=== PATIENT | female | born 1960 | race Caucasian/White ===

== ENCOUNTER 2022-06-26 08:35 | Outpatient (CLI) | payer OTHER, SELFPAY ==
[2022-06-26 13:45] LABS: Albumin* 4.2 g/dL (3.3-5.0); Chloride* 106 mmol/L (96-114); Sodium* 139 mmol/L (135-149)
[2022-06-26 13:46] LABS: Potassium* 4.5 mmol/L (3.6-5.1)
[2022-06-26 13:47] LABS: Cholesterol* 238 mg/dL (90-199)
[2022-06-26 13:48] LABS: Alanine Aminotransferase* 19 U/L (4-35); Alkaline Phosphatase* 95 U/L (40-150); Aspartate Amino Transferase* 27 U/L (12-35); Bilirubin Total* 0.4 mg/dL (0.1-1.5); Blood Urea Nitrogen* 18 mg/dL (7-30); Carbon Dioxide* 27 mmol/L (20-32); Creatinine* 0.7 mg/dL (0.5-1.5); Estimated Glomerular Filt Rate 97 ml/min; Glucose* 96 mg/dL (60-115); Total Protein* 6.8 g/dL (6.0-8.3); Triglycerides* 72 mg/dL (40-149)
[2022-06-26 13:49] LABS: Calcium* 9.3 mg/dL (8.4-10.6); HDL Cholesterol* 55 mg/dL (>=50); LDL Cholesterol Calculated 169 mg/dL (<100)
== END 2022-06-26 08:36 | disposition home or self-care (01) ==
PROVIDERS: PCP Family Medicine; Visit Provider Nurse Practitioner Family
DX: Z00.00 Encounter for general adult medical examination without abnormal findings (principal); B35.1 Tinea unguium; L25.9 Unspecified contact dermatitis, unspecified cause; Z13.6 Encounter for screening for cardiovascular disorders
CPT/HCPCS: 80053; 80061

== ENCOUNTER 2022-07-23 10:54 | Outpatient (RCR) | payer OTHER, SELFPAY ==
[2022-07-23 11:12] LABS: D Dimer Quantitative* < 0.27 ug/ml (0.00-0.50)
[2022-07-26 01:03] LABS: Cardiolipin Antibody IgA < 10 APL (<=11); Cardiolipin Antibody IgG < 10 GPL (<=14); Cardiolipin Antibody IgM < 10 MPL (<=12)
[2022-07-26 01:21] LABS: B2Glycoprotein 1, IgG Antibody < 10 SGU (<=20); B2Glycoprotein 1, IgM Antibody < 10 SMU (<=20)
[2022-07-26 18:26] LABS: Protein C Functional 141 % (83-168); Protein S Functional 89 % (57-131)
[2022-07-27 12:05] LABS: Antithrombin, Enzymatic 108 % (76-128)
[2022-07-28 10:41] LABS: FACV Specimen Whole Blood; Factor V Leiden (F5) Mutation Negative
[2022-07-28 20:04] LABS: PT PCR Specimen Whole Blood; Prothrombin(F2)G20210A Variant Negative
[2022-08-01 22:59] LABS: Prothrombin Time 14.1 sec (12.0-15.5); dRVVT Screen 36 sec (33-44)
== END 2023-01-19 23:59 | disposition home or self-care (01) ==
LOC: CCIC 10:54
PROVIDERS: PCP Family Medicine; Visit Provider Internal Medicine Hematology & Oncology
DX: I26.99 Other pulmonary embolism without acute cor pulmonale (principal); Z86.718 Personal history of other venous thrombosis and embolism; Z79.01 Long term (current) use of anticoagulants
CPT/HCPCS: 36415; 81240; 81241; 85300; 85303; 85306; 85379; 85610; 85613; 85730; 86146; 86147; 99202; 99205

== ENCOUNTER 2022-08-18 12:13 | Outpatient (CLI) | payer OTHER, SELFPAY ==
--- NOTE | 2022-08-18 13:40 | CRLHL7_ITS ---
For Patients: As a result of the Century Cures Act, medical imaging exams and procedure reports are released immediately into your electronic medical record. You may view this report before your referring provider. If you have questions, please contact your health care provider. BILATERAL SCREENING MAMMOGRAM WITH COMPUTER-AIDED DETECTION AND TOMOSYNTHESIS TECHNIQUE: CC and MLO views were obtained. These mammographic images have been obtained using full-field digital technique. These mammographic images were interpreted with the benefit of computer-aided detection. Breast Tomosynthesis was used in this interpretation. COMPARISON FILM: 09/25/21, 09/10/20, 09/09/19. FINDINGS: There are scattered areas of fibroglandular density IMPRESSION: There is no radiographic evidence for malignancy. ASSESSMENT: BI-RADS Category 1: Negative RECOMMENDATION: Routine screening mammogram in 1 year. A lay language report of this examination will be provided to the patient. Yolanda Barth M.D. Diagnostic/Breast Radiologist [email or web address] STEPHANY/Dictated by: Yolanda Barth MD @ 08/19/2022 8:35:00 AM (Electronically Signed)
== END 2022-08-18 12:14 | disposition home or self-care (01) ==
PROVIDERS: PCP Family Medicine; Visit Provider Nurse Practitioner Family
DX: Z12.31 Encounter for screening mammogram for malignant neoplasm of breast (principal)
CPT/HCPCS: 77063; 77067

== ENCOUNTER 2023-10-06 12:50 | Outpatient (CLI) | payer OTHER, SELFPAY ==
--- NOTE | 2023-10-06 13:20 | CRLHL7_ITS ---
For Patients: As a result of the Century Cures Act, medical imaging exams and procedure reports are released immediately into your electronic medical record. You may view this report before your referring provider. If you have questions, please contact your health care provider. BILATERAL SCREENING MAMMOGRAM WITH COMPUTER-AIDED DETECTION AND TOMOSYNTHESIS TECHNIQUE: CC and MLO views were obtained. These mammographic images have been obtained using full-field digital technique. These mammographic images were interpreted with the benefit of computer-aided detection. Breast Tomosynthesis was used in this interpretation. COMPARISON FILM: 08/18/22, 09/25/21, 09/10/20. FINDINGS: There are scattered areas of fibroglandular density IMPRESSION: There is no radiographic evidence for malignancy. ASSESSMENT: BI-RADS Category 1: Negative RECOMMENDATION: Routine screening mammogram in 1 year. A lay language report of this examination will be provided to the patient. Vicente Johns M.D. Diagnostic Radiologist [email or web address] STEPHANY/Dictated by: Vicente Johns MD @ 10/07/2023 9:05:00 AM (Electronically Signed)
== END 2023-10-06 12:51 | disposition home or self-care (01) ==
LOC: MAMMO 12:51
PROVIDERS: PCP Family Medicine; Visit Provider Family Medicine
DX: Z12.31 Encounter for screening mammogram for malignant neoplasm of breast (principal)
CPT/HCPCS: 77063; 77067

== ENCOUNTER 2024-11-11 12:46 | Outpatient (CLI) | payer OTHER, SELFPAY ==
--- NOTE | 2024-11-11 14:40 | CRLHL7_ITS ---
For Patients: As a result of the Century Cures Act, medical imaging exams and procedure reports are released immediately into your electronic medical record. You may view this report before your referring provider. If you have questions, please contact your health care provider. BILATERAL SCREENING MAMMOGRAM WITH COMPUTER-AIDED DETECTION AND TOMOSYNTHESIS TECHNIQUE: CC and MLO views were obtained. These mammographic images have been obtained using full-field digital technique. These mammographic images were interpreted with the benefit of computer-aided detection. Breast Tomosynthesis was used in this interpretation. COMPARISON FILM: 10/06/23, 08/18/22, 09/25/21. FINDINGS: There are scattered areas of fibroglandular density. IMPRESSION: There is no radiographic evidence for malignancy. ASSESSMENT: BI-RADS Category 1: Negative RECOMMENDATION: Routine screening mammogram in 1 year. A lay language report of this examination will be provided to the patient. Vicente Johns M.D. Diagnostic Radiologist [email or web address] SP/Dictated by: Vicente Johns MD @ 11/14/2024 8:32:00 AM (Electronically Signed)
== END 2024-11-11 12:47 | disposition home or self-care (01) ==
LOC: MAMMO 12:46
PROVIDERS: PCP Family Medicine; Visit Provider Family Medicine
DX: Z12.31 Encounter for screening mammogram for malignant neoplasm of breast (principal)
CPT/HCPCS: 77063; 77067

== ENCOUNTER 2025-09-07 11:38 | Outpatient (CLI) | payer MEDICARE, SELFPAY | END 2025-09-07 11:39 | disposition home or self-care (01) | LOC: NFLDREF 09-09 18:48 | PROVIDERS: PCP Family Medicine; Referring Provider Family Medicine; Visit Provider Nurse Practitioner Family | DX: I10 Essential (primary) hypertension (principal); R53.83 Other fatigue; E78.5 Hyperlipidemia, unspecified | CPT/HCPCS: 80053; 80061; 82306; 84443 ==

== ENCOUNTER 2025-10-05 14:39 | Outpatient (CLI) | payer MEDICARE, SELFPAY ==
--- NOTE | 2025-10-05 15:00 | CRLHL7_ITS ---
For Patients: As a result of the Century Cures Act, medical imaging exams and procedure reports are released immediately into your electronic medical record. You may view this report before your referring provider. If you have questions, please contact your health care provider. DXA BONE MINERAL DENSITY STUDY Current height (in): 64. Weight (lb): 180. Menopause age: 49. Ethnicity: White. 1. Have you had a previous hip or vertebral fracture? No. 2. Have you had any fractures during your adult life which did not result from significant trauma (e.g., auto accident)? No. 3. Did either of your parents have a hip fracture? No. 4. Do you smoke? No. 5. Have you ever taken Glucocorticoids? No. 6. Do you have rheumatoid arthritis? No. 7. Do you have secondary osteoporosis? No. 8. Do you drink 3 or more alcoholic drinks per day? No. 9. Are you being treated for osteoporosis? No. 10. Have you ever taken any of the following medications: Actonel, Evista, Fosamax, Miacalcin, Reclast, Boniva, Forteo, HRT (i.e. estrogen/hormone therapy), Protelos, Prolia, Vitamin D, Calcium, other ??? please specify. ANSWER: Yes, vitamin D. 11. Do you have any of the following medical conditions: Anorexia or bulimia, asthma or emphysema, end stage renal disease, hyperparathyroidism, any seizure disorders, cancer, inflammatory bowel diseases, hysterectomy, other ??? please specify. ANSWER: No. 12. What was your maximum height (inches)? 64. 13. Do you perform weight bearing exercise regularly? Yes. 14. Do you regularly consume dairy products? Yes. 15. Do you drink caffeinated beverages? No. 16. At what age did your period start? 12. 17. Are you premenopausal? No. 18. How many full term pregnancies have you had? 4. 19. Have you ever missed your period for more than 6 months in a row (not including or menopause)? No. TECHNIQUE: Bone mineral density study was performed using the [facility]. FINDINGS: The results of the study expressed as bone mineral density (BMD) are as follows: Lumbar spine L1 to L4: BMD: 0.947 g/cm2. T-score: -0.9. Z-score: 1.0. Neck Left: BMD: 0.657 g/cm2. T-score: -1.7. Z-score: -0.1. Right: BMD: 0.699 g/cm2. T-score: -1.4. Z-score: 0.2. Total Left: BMD: 0.819 g/cm2. T-score: -1.0. Z-score: 0.3. Right: BMD: 0.825 g/cm2. T-score: -1.0. Z-score: 0.4. IMPRESSION: Osteopenia. *Comparison exams done prior to 04/2020 were performed on different unit, AQS. FRAX 10-year Fracture Risk Major Osteoporotic Fracture: 9.6 percent Hip Fracture: 1.2 percent Reported Risk Factors: [place] () Neck BMD=0.657, BMI=30.9 Vicente Johns M.D. Diagnostic Radiologist [email or web address] STEPHANY/Dictated by: Vicente Johns MD @ 10/05/2025 3:30:00 PM (Electronically Signed)
== END 2025-10-05 14:40 | disposition home or self-care (01) ==
LOC: RAD 14:42
PROVIDERS: PCP Nurse Practitioner Family; Visit Provider Nurse Practitioner Family
DX: Z13.820 Encounter for screening for osteoporosis (principal); M85.89 Other specified disorders of bone density and structure, multiple sites
CPT/HCPCS: 77080